=== PATIENT | male | born 1990 | race Caucasian/White ===

== ENCOUNTER 2016-12-19 17:03 | Emergency (ER) | payer SELFPAY ==
[2016-12-19 17:18] VITALS: BP 149/84
[2016-12-19] MEDS ORDERED: Sodium Chloride 0.9% 1,000 ML IV ONE (17:24)
[2016-12-19] MEDS ORDERED: Ketorolac 30 MG/ML SDV IVPUSH ONE (17:25)
[2016-12-19 18:10] LABS: CHLORIDE,CL 105 mmol/L (98-115); SODIUM,NA 143 mmol/L (136-145)
--- NOTE | 2016-12-19 18:12 | EDM.PDOC ---
ED HPI GENERAL MEDICAL PROBLEM - General Chief Complaint: Abdominal Pain Stated Complaint: right sided flank pain Time Seen by Provider: 12/19/16 18:07 Source of Information: Reports: Patient History Limitations: Reports: No Limitations - History of Present Illness INITIAL COMMENTS - FREE TEXT/NARRATIVE: 26 yo wm presents to ER complaining of right flank pain with radiation to right side of abdomen x 5 hours. Pt reports pain began suddenly in the right side of his back with radiation to right side of abdomen which waxes and wanes. Pt denies any fever/chills. Pt reports nausea without vomiting. Pt reports some dysuria with frequency but without urgency. Onset: Today Onset Date: 12/19/16 Onset Time: 13:00 Duration: Day(s): (1) Location: Reports: Abdomen (right sided), Back (right flank) Quality: Reports: Pressure, Stabbing Severity: Moderate Improves with: Reports: None Worsens with: Reports: None Associated Symptoms: Reports: Nausea/Vomiting. Denies: Chest Pain, Cough, cough w sputum, Fever/Chills, Headaches, Loss of Appetite, Rash, Seizure - Related Data Allergies Allergy/AdvReac Type Severity Reaction Status Date / Time No Known Drug Allergies Allergy Other Verified 12/19/16 17:12 Home Meds: Home Meds Naproxen Sodium [Aleve] 2 tab PO BID PRN 12/19/16 [History] ED ROS GENERAL - Review of Systems Review Of Systems: See Below Constitutional: Reports: No Symptoms HEENT: Reports: No Symptoms Respiratory: Reports: No Symptoms Cardiovascular: Reports: No Symptoms Endocrine: Reports: No Symptoms GI/Abdominal: Reports: Abdominal Pain (right sided), Nausea. Denies: Hematemesis, Hematochezia, Melena, Mucous in Stool, Vomiting : Reports: Dysuria, Flank Pain (right sided), Frequency, Hematuria Musculoskeletal: Reports: No Symptoms Skin: Reports: No Symptoms Neurological: Reports: No Symptoms Psychiatric: Reports: No Symptoms Hematologic/Lymphatic: Reports: No Symptoms Immunologic: Reports: No Symptoms ED EXAM, RENAL/ - Physical Exam Exam: See Below Exam Limited By: No Limitations General Appearance: Alert, WD/WN, No Apparent Distress Neck: Normal Inspection, Supple, Non-Tender, Full Range of Motion Respiratory/Chest: No Respiratory Distress, Lungs Clear, Normal Breath Sounds, No Accessory Muscle Use, Chest Non-Tender Cardiovascular: Normal Peripheral Pulses, Regular Rate, Rhythm, No Edema, No Gallop, No JVD, No Murmur, No Rub GI/Abdominal: Normal Bowel Sounds, Soft, Non-Tender, No Organomegaly, No Distention, No Abnormal Bruit, No Mass Back Exam: CVA Tenderness (R) Extremities: Normal Inspection, Normal Range of Motion, Non-Tender, Normal Capillary Refill, No Pedal Edema Neurological: Alert, Oriented, CN II-XII Intact, Normal Cognition, Normal Gait, Normal Reflexes, No Motor/Sensory Deficits Psychiatric: Normal Affect, Normal Mood Skin Exam: Warm, Dry, Intact, Normal Color, No Rash Lymphatic: No Adenopathy Course - Vital Signs Last Recorded V/S: Last Vital Signs Temp 36.9 C 12/19/16 17:16 Pulse 85 12/19/16 17:16 Resp 20 12/19/16 17:16 BP 149/84 H 12/19/16 17:16 Pulse Ox 96 12/19/16 17:16 - Orders/Labs/Meds Labs: Laboratory Tests 12/19/16 12/19/16 12/19/16 Range/Units 17:30 17:30 17:30 WBC 9.2 (5.0-10.0) 10^3/uL RBC 5.42 (4.50-6.00) 10^6/uL Hgb 16.3 (13.0-17.0) g/dL Hct 46.3 (40.0-52.0) % MCV 85.4 (82.0-92.0) fL MCH 30.1 (27.0-31.0) pg MCHC 35.2 (32.0-36.0) g/dL RDW 11.9 (11.5-14.5) % Plt Count 272 (150-300) 10^3/uL MPV 7.6 (7.4-10.4) fL Neut % (Auto) 66.4 (50.0-70.0) % Lymph % (Auto) 21.9 (20.0-40.0) % [place] % (Auto) 8.4 H (2.0-8.0) % Eos % (Auto) 1.9 (1.0-3.0) % Baso % (Auto) 1.4 H (0.0-1.0) % Neut # (Auto) 6.1 (2.5-7.0) 10^3/uL Lymph # (Auto) 2.0 (1.0-4.0) 10^3/uL [place] # (Auto) 0.8 (0.1-0.8) 10^3/uL Eos # (Auto) 0.2 (0.1-0.3) 10^3/uL Baso # (Auto) 0.1 (0.0-0.1) 10^3/uL Sodium 143 (136-145) mmol/L Potassium 3.7 (3.3-5.3) mmol/L Chloride 105 (98-115) mmol/L Carbon Dioxide 29.4 (21.0-32.0) mmol/L BUN 17 (6-25) mg/dL Creatinine 0.94 (0.51-1.17) mg/dL Est Cr Clr Drug Dosing 128.42 mL/min Estimated GFR (MDRD) > 60 mL/min Glucose 105 (70-110) mg/dL Calcium 10.4 H (8.7-10.3) mg/dL Total Bilirubin 0.4 (0.2-1.0) mg/dL AST 19 (15-37) U/L ALT 70 (12-78) U/L Alkaline Phosphatase 133 H (46-116) IU/L Total Protein 8.1 (6.4-8.2) g/dL Albumin 4.16 (3.00-4.80) g/dL Lipase 69 L (73-393) U/L Specimen Type Urinvoid Urine Color Yellow (YELLOW) Urine Appearance Clear (CLEAR) Urine pH 5.5 (5.0-9.0) Ur Specific [place] 1.020 (1.005-1.030) Urine Protein Negative (NEGATIVE) mg/dL Urine Glucose (UA) Negative (NEGATIVE) mg/dL Urine Ketones Negative (NEGATIVE) mg/dL Urine Occult Blood Large H (NEGATIVE) Urine Nitrite Negative (NEGATIVE) Urine Bilirubin Negative (NEGATIVE) Urine Urobilinogen 0.2 (0.2-1.0) E.U./dL Ur Leukocyte Esterase Negative (NEGATIVE) Urine RBC 30-40 H /HPF Urine WBC Not seen /HPF Ur Epithelial Cells Few /LPF Urine Mucus Few H (NEGATIVE) /LPF Meds: Medications Discontinued Medications Generic Name Dose Route Start Last Admin Trade Name Liz PRN Reason Stop Dose Admin Sodium Chloride 1,000 mls @ 2,000 mls/hr 12/19/16 17:24 12/19/16 17:49 Normal Saline IV 12/19/16 17:53 2,000 mls/hr .BOLUS ONE Administration Ketorolac Tromethamine 30 mg 12/19/16 17:25 12/19/16 17:47 Toradol IVPUSH 12/19/16 17:26 30 mg ONETIME ONE Administration Departure - Departure Time of Disposition: 18:45 Disposition: Home, Self-Care 01 Condition: good Clinical Impression: Kidney stone on right side - Discharge Information Instructions: Pain Medicine Instructions, [id number], Flank Pain, Kidney Stones Referrals: PCP,Not In Area [Primary Care Provider] - Marleny Patterson MD [Physician] - Forms: ED Department Discharge - Assessment/Plan Assessment:: 1. right sided kidney stone Plan: 1. hydrocodone 10/325 Q6 PRN #10 2. motrin 600mg PO Q6 x 5 days 3. flomax 4. plenty of fluids 5. follow up in clinic for further evaluation and treatment
[2016-12-19] MEDS ORDERED: Acetaminophen/HYDROcodone 325-10 MG Tab PO PRN (18:49)
[2016-12-19] MEDS ORDERED: Tamsulosin 0.4 MG Cap.ER PO SCH (19:00)
[2016-12-19] MEDS ORDERED: Ibuprofen 600 MG Tab PO SCH (19:00)
[2016-12-22] MEDS ORDERED: Acetaminophen/HYDROcodone 325-10 MG Tab PO PRN (16:04)
[2016-12-22] MEDS ORDERED: Ibuprofen 600 MG Tab PO SCH (16:15)
== END 2016-12-19 19:25 | disposition home or self-care (01) ==
LOC: KA.ED 17:03
DX: N20.0 Calculus of kidney (principal)
CPT/HCPCS: 80053; 81001; 83690; 85025; 96374; 99284; A9270; J1885; J7030